=== PATIENT | male | born 1970 | race Caucasian/White ===

== ENCOUNTER 2022-11-24 16:21 | Outpatient (CLI) | payer OTHER, SELFPAY ==
[2022-11-24 21:58] LABS: Albumin* 4.7 g/dL (3.3-5.0)
[2022-11-24 22:01] LABS: Alanine Aminotransferase* 56 U/L (4-50); Alkaline Phosphatase* 45 U/L (40-150); Aspartate Amino Transferase* 53 U/L (12-35); Bilirubin Direct* 0.1 mg/dL (0.0-0.5); Bilirubin Total* 1.4 mg/dL (0.1-1.5); Total Protein* 7.8 g/dL (6.0-8.3)
[2022-11-24 22:31] LABS: PSA Screen* 1.07 ng/mL (0.10-4.00)
== END 2022-11-24 16:22 | disposition home or self-care (01) ==
PROVIDERS: PCP Family Medicine; Visit Provider Family Medicine
DX: Z00.00 Encounter for general adult medical examination without abnormal findings (principal); I10 Essential (primary) hypertension; R07.9 Chest pain, unspecified; F41.9 Anxiety disorder, unspecified; E78.00 Pure hypercholesterolemia, unspecified
CPT/HCPCS: 80076; 84153; 84443

== ENCOUNTER 2022-12-29 13:44 | Outpatient (CLI) | payer OTHER, SELFPAY ==
[2022-12-29 14:44] VITALS: BP 184/90; PULSE 98; RESP 18
--- NOTE | 2022-12-29 15:44 | W.PM.STED ---
Stress Test Note Date Time Seen by Provider: 14:33 Date Seen: 12/29/22 Date of test: 12/29/22 Providers Referring provider: Perry Barnhart Primary care provider: Perry Barnhart Stress test physician: Wandy See Stress Test Note Stress test ordered: Stress Echo Indication for test: Chest pain Stress test medicine: None Results discussion: Resting EKG: Sinus rhythm, 85 beats per minute flipped T-waves in the anterior precordial leads V1 through V5, flat V6, some low-voltage QRS seen. Resting blood pressure: 186/92, patient is known to have hypertension, meds appropriately with held for stress test including propranolol. Stress test: Patient exercised on the treadmill following standard Cristhian protocol. He exercised to 8 minutes 59 seconds, achieving 11.7 Mets. Test was stopped due to shortness of breath and reaching goal heart rate. He had a maximum heart rate of 150 which was 106% of a calculated target of 141. Patient had a rate pressure product of 26,880. He did have hypertensive response to exercise which is expected in his situation. There is no ischemic change noted. No arrhythmias seen. Impression: Subjectively negative, objectively negative EKG portion of this stress test. Follow up suggested: He will await the echo images to couple this for a full formal diagnostic. He is resume his antihypertensive medicines. His primary care provider whom ordered the test should get the formal report once the echo was done.
== END 2022-12-29 13:45 | disposition home or self-care (01) ==
LOC: STRESS 13:46
PROVIDERS: PCP Family Medicine; Visit Provider Family Medicine
DX: R07.9 Chest pain, unspecified (principal); I25.10 Atherosclerotic heart disease of native coronary artery without angina pectoris; R94.31 Abnormal electrocardiogram [ECG] [EKG]; I10 Essential (primary) hypertension
CPT/HCPCS: 93016; 93325; 93351

== ENCOUNTER 2023-02-17 09:59 | Outpatient (CLI) | payer OTHER, SELFPAY | END 2023-02-17 10:00 | disposition home or self-care (01) | LOC: RAD 09:59 | PROVIDERS: PCP Family Medicine; Visit Provider Family Medicine | DX: R94.31 Abnormal electrocardiogram [ECG] [EKG] (principal) | CPT/HCPCS: 93306 ==

== ENCOUNTER 2023-02-21 08:19 | Outpatient (CLI) | payer OTHER, SELFPAY | END 2023-02-21 08:20 | disposition home or self-care (01) | LOC: NFLDREF 02-24 09:04 | PROVIDERS: PCP Family Medicine; Referring Provider Family Medicine; Visit Provider Family Medicine | DX: Z00.00 Encounter for general adult medical examination without abnormal findings (principal); F41.9 Anxiety disorder, unspecified; I10 Essential (primary) hypertension; R07.9 Chest pain, unspecified; E78.00 Pure hypercholesterolemia, unspecified | CPT/HCPCS: 80053; 80061; 84153 ==

== ENCOUNTER 2023-06-08 15:05 | Outpatient (CLI) | payer OTHER, SELFPAY | END 2023-06-08 15:06 | disposition home or self-care (01) | LOC: NFLDREF 06-09 08:27 | PROVIDERS: PCP Family Medicine; Referring Provider Family Medicine; Visit Provider Family Medicine | DX: E87.6 Hypokalemia (principal) | CPT/HCPCS: 80048 ==

== ENCOUNTER 2024-05-20 11:01 | Outpatient (CLI) | payer OTHER, SELFPAY | END 2024-05-20 11:02 | disposition home or self-care (01) | LOC: LKVREF 11:04 | PROVIDERS: PCP Family Medicine; Visit Provider Family Medicine | DX: R73.03 Prediabetes (principal); I10 Essential (primary) hypertension; E87.6 Hypokalemia; F41.9 Anxiety disorder, unspecified; N52.9 Male erectile dysfunction, unspecified | CPT/HCPCS: 80053; 80061; 84270; 84402; 84403; G0103 ==

== ENCOUNTER 2024-05-28 09:45 | Outpatient (CLI) | payer OTHER, SELFPAY ==
--- NOTE | 2024-05-28 09:45 | CRLHL7_ITS ---
For Patients: As a result of the Cures Act, medical imaging exams and procedure reports are released immediately into your electronic medical record. You may view this report before your referring provider. If you have questions, please contact your health care provider. DIGITAL DIAGNOSTIC BILATERAL MAMMOGRAM USING TOMOSYNTHESIS AND COMPUTER-AIDED DETECTION BILATERAL BREAST ULTRASOUND CLINICAL HISTORY: BILATERAL breast lumps. COMPARISON: None. TECHNIQUE: Digital BILATERAL mammogram in four projections with computer-aided detection. Tomosynthesis was used in this interpretation. Real-time ultrasound imaging of BILATERAL breast with imaging documentation. BREAST COMPOSITION: There are areas of scattered fibroglandular density. FINDINGS: 3D CC/MLO BILATERAL mammogram images submitted. Bilateral gynecomastia noted. No suspicious mass or architectural distortion. No adenopathy or suspicious calcification. Targeted BILATERAL ultrasound in the subareolar regions performed. Normal fibroglandular tissue. No suspicious mass or fluid collection. IMPRESSION: BILATERAL gynecomastia. No evidence of malignancy. RECOMMENDATIONS: Clinical follow-up. Results and recommendations discussed with the patient. BI-RADS Category 2: Benign A lay language report of this examination will be provided to the patient. Dictated by Jorge Tidwell MD @ 05/28/2024 11:28:16 AM j/Dictated by: Jorge Tidwell MD @ 05/28/2024 11:28:00 AM (Electronically Signed)
--- NOTE | 2024-05-28 10:15 | CRLHL7_ITS ---
For Patients: As a result of the Cures Act, medical imaging exams and procedure reports are released immediately into your electronic medical record. You may view this report before your referring provider. If you have questions, please contact your health care provider. PLEASE SEE DIGITAL DIAGNOSTIC BILATERAL MAMMOGRAM PERFORMED SAME DAY CRL:traci aviles/Dictated by: Jorge Tidwell MD @ 05/28/2024 11:28:00 AM (Electronically Signed)
== END 2024-05-28 09:46 | disposition home or self-care (01) ==
LOC: MAMMO 09:46
PROVIDERS: PCP Family Medicine; Visit Provider Family Medicine
DX: N63.10 Unspecified lump in the right breast, unspecified quadrant (principal); N63.20 Unspecified lump in the left breast, unspecified quadrant
CPT/HCPCS: 76642; 77066; G0279

== ENCOUNTER 2024-05-31 09:14 | Outpatient (CLI) | payer OTHER, SELFPAY | END 2024-05-31 09:15 | disposition home or self-care (01) | LOC: NFLDREF 06-02 06:29 | PROVIDERS: PCP Family Medicine; Referring Provider Family Medicine; Visit Provider Family Medicine | DX: E87.6 Hypokalemia (principal) | CPT/HCPCS: 80048 ==

== ENCOUNTER 2024-06-11 08:06 | Outpatient (CLI) | payer OTHER, SELFPAY | END 2024-06-11 08:07 | disposition home or self-care (01) | PROVIDERS: PCP Family Medicine; Visit Provider Family Medicine | DX: E87.6 Hypokalemia (principal); N62 Hypertrophy of breast; R79.89 Other specified abnormal findings of blood chemistry | CPT/HCPCS: 80076; 82670; 83002; 84270; 84402; 84403; 84443; 84702 ==

== ENCOUNTER 2024-06-12 08:09 | Outpatient (CLI) | payer OTHER, SELFPAY ==
--- NOTE | 2024-06-12 08:15 | CRLHL7_ITS ---
For Patients: As a result of the Century Cures Act, medical imaging exams and procedure reports are released immediately into your electronic medical record. You may view this report before your referring provider. If you have questions, please contact your health care provider. INDICATION: Abnormal labs, evaluation rule out cirrhosis TECHNIQUE: Ultrasound abdomen limited. Sonographic images of the right upper quadrant were obtained using joseph-scale and color Doppler images. COMPARISON: None FINDINGS: Liver: Echogenic compatible with fatty infiltration. Slightly nodular liver contour and a few of the images raises suspicion for cirrhosis. No masses. No intrahepatic biliary dilatation. Gallbladder: Stones and sludge present within the gallbladder. Normal wall thickness. No pericholecystic fluid. Common bile duct: 3 mm. Pancreas: Normal where visualized. Right kidney: Normal in size. Normal echotexture and cortex. No suspicious masses, stones, or hydronephrosis. Vasculature: Proximal abdominal aorta and IVC are normal. IMPRESSION: 1. Hepatic steatosis and possible cirrhosis. 2. Cholelithiasis. Dictated by Joe Hughes MD @ 06/12/2024 1:31:52 PM (Electronically Signed)
== END 2024-06-12 08:10 | disposition home or self-care (01) ==
LOC: US 08:10
PROVIDERS: PCP Family Medicine; Visit Provider Family Medicine
DX: R79.89 Other specified abnormal findings of blood chemistry (principal); K76.0 Fatty (change of) liver, not elsewhere classified; K80.20 Calculus of gallbladder without cholecystitis without obstruction; N62 Hypertrophy of breast; E87.6 Hypokalemia; I10 Essential (primary) hypertension
CPT/HCPCS: 76705

== ENCOUNTER 2024-09-16 15:34 | Outpatient (CLI) | payer OTHER, SELFPAY | END 2024-09-16 15:35 | disposition home or self-care (01) | PROVIDERS: PCP Family Medicine; Visit Provider Family Medicine | DX: I10 Essential (primary) hypertension (principal); R79.89 Other specified abnormal findings of blood chemistry; K76.0 Fatty (change of) liver, not elsewhere classified; F41.9 Anxiety disorder, unspecified; N62 Hypertrophy of breast | CPT/HCPCS: 80076; 84403 ==

== ENCOUNTER 2024-10-21 08:42 | Outpatient (CLI) | payer OTHER, SELFPAY ==
[2024-10-21] MEDS: PERFLUTREN LIPID MICROSPHERES 2 ML VIAL IVP (12:56)
== END 2024-10-21 08:43 | disposition home or self-care (01) ==
LOC: RAD 08:42
PROVIDERS: PCP Family Medicine; Visit Provider Family Medicine
DX: I42.2 Other hypertrophic cardiomyopathy (principal); I51.7 Cardiomegaly; I42.9 Cardiomyopathy, unspecified; R79.89 Other specified abnormal findings of blood chemistry; K76.0 Fatty (change of) liver, not elsewhere classified; I10 Essential (primary) hypertension
CPT/HCPCS: 93306; Q9957

== ENCOUNTER 2025-07-31 08:02 | Outpatient (CLI) | payer OTHER, SELFPAY | END 2025-07-31 08:03 | disposition home or self-care (01) | LOC: LKVREF 15:40 | PROVIDERS: PCP Family Medicine; Referring Provider Family Medicine; Visit Provider Family Medicine | DX: I10 Essential (primary) hypertension (principal); E78.00 Pure hypercholesterolemia, unspecified; E87.6 Hypokalemia; R79.89 Other specified abnormal findings of blood chemistry; R73.03 Prediabetes; Z12.5 Encounter for screening for malignant neoplasm of prostate | CPT/HCPCS: 80053; 80061; 84270; 84402; 84403; G0103 ==